=== PATIENT | female | born 1960 | race Caucasian/White ===

== ENCOUNTER 2023-09-18 20:32 | Emergency (ER) | payer BC ==
[2023-09-18] MEDS ORDERED: LORazepam 2 MG/ML SDV IVPUSH ONE (21:05)
[2023-09-18] MEDS ORDERED: Sodium Chloride 0.9% 1,000 ML IV ONE (21:05)
[2023-09-18 21:18] LABS: BASOPHILS PERCENT AUTO 0.5 % (0.2-1.2); EOSINOPHILS ABSOLUTE AUTO 0.2 x10^3/uL (0.0-0.5); EOSINOPHILS PERCENT AUTO 3.8 % (0.0-4.0); HEMATOCRIT 45.1 % (33.0-47.0); HEMOGLOBIN 14.7 g/dL (12.0-16.0); LYMPHOCYTES PERCENT AUTO 16.7 % (25.0-50.0); MEAN CORPUSCULAR HEMOGLOBIN 29.2 pg (26.0-32.0); MEAN CORPUSCULAR HGB CONC 32.6 g/dL (32.0-36.0); MEAN CORPUSCULAR VOLUME 89.5 fL (78.0-93.0); MONOCYTES ABSOLUTE AUTO 0.6 x10^3/uL (0.0-0.8); MONOCYTES PERCENT AUTO 10.2 % (2.0-11.0); NEUTROPHILS PERCENT AUTO 68.8 % (50.0-80.0); PLATELET COUNT,PLT 273 x10^3/uL (130-400); RED BLOOD CELL COUNT 5.04 x10^6/uL (4.00-5.50); WHITE BLOOD CELL COUNT,WBC 5.9 x10^3/uL (4.0-10.0)
[2023-09-18 21:38] LABS: A/G RATIO 0.98; ALANINE AMINOTRANSFERASE,ALT 33 U/L (14-59); ALKALINE PHOSPHATASE 89 U/L (46-116); ANION GAP 17.6 mmol/L (5-15); ASPARTATE AMNIOTRANSFERASE,AST 37 U/L (15-37); BILIRUBIN TOTAL 0.2 mg/dL (0.2-1.0); BLOOD UREA NITROGEN,BUN 21 mg/dL (7-18); C-REACTIVE PROTEIN 0.52 mg/dL (<=0.50); CALCIUM 10.2 mg/dL (8.5-10.1); CARBON DIOXIDE,CO2 24 mmol/L (21-32); CHLORIDE,CL 103 mmol/L (98-107); CREATININE 0.7 mg/dL (0.55-1.02); ESTIMATED GFR 98 mL/min (>=60); GLUCOSE RANDOM 104 mg/dL (70-99); MAGNESIUM 2.2 mg/dL (1.8-2.4); POTASSIUM,K 3.6 mmol/L (3.5-5.1); PROTEIN TOTAL,TP 8.1 g/dL (6.4-8.2); SODIUM,NA 141 mmol/L (136-145)
[2023-09-18] MEDS ORDERED: LORazepam 2 MG/ML SDV IM ONE (21:42)
[2023-09-18] MEDS ORDERED: Take Home: LORazepam 0.5 MG Tab, 2 Tab Pack PO ONE (22:29)
== END 2023-09-18 22:37 | disposition home or self-care (01) ==
LOC: VM.ED 20:32
DX: F41.9 Anxiety disorder, unspecified (principal); Z87.891 Personal history of nicotine dependence
CPT/HCPCS: 80053; 83735; 85025; 86140; 96361; 96372; 96374; 99283; 99284; A9270; J2060; J7030

== ENCOUNTER 2024-01-18 16:02 | Emergency (ER) | payer BC ==
[2024-01-18] MEDS: Aspirin 81 MG Tab.Chew PO ONE (16:10)
[2024-01-18] MEDS: Ketorolac 15 MG/ML SDV IVPUSH ONE (17:04)
[2024-01-18 17:07] LABS: BASOPHILS PERCENT AUTO 0.4 % (0.2-1.2); EOSINOPHILS ABSOLUTE AUTO 0.1 x10^3/uL (0.0-0.5); EOSINOPHILS PERCENT AUTO 1.9 % (0.0-4.0); HEMATOCRIT 36.8 % (33.0-47.0); HEMOGLOBIN 12.6 g/dL (12.0-16.0); IMMATURE GRAN ABSOLUTE AUTO 0.01 x10^3/uL (0.00-0.07); LYMPHOCYTES ABSOLUTE AUTO 1.1 x10^3/uL (1.0-4.8); LYMPHOCYTES PERCENT AUTO 20.5 % (25.0-50.0); MEAN CORPUSCULAR HEMOGLOBIN 30.7 pg (26.0-32.0); MEAN CORPUSCULAR HGB CONC 34.2 g/dL (32.0-36.0); MEAN CORPUSCULAR VOLUME 89.8 fL (78.0-93.0); MONOCYTES ABSOLUTE AUTO 0.5 x10^3/uL (0.0-0.8); MONOCYTES PERCENT AUTO 8.6 % (2.0-11.0); NEUTROPHILS ABSOLUTE AUTO 3.6 x10^3/uL (1.8-7.7); NEUTROPHILS PERCENT AUTO 68.4 % (50.0-80.0); PLATELET COUNT,PLT 202 x10^3/uL (130-400); WHITE BLOOD CELL COUNT,WBC 5.3 x10^3/uL (4.0-10.0)
[2024-01-18 17:30] LABS: ANION GAP 17.9 mmol/L (5-15); BLOOD UREA NITROGEN,BUN 16 mg/dL (7-18); CALCIUM 9.8 mg/dL (8.5-10.1); CARBON DIOXIDE,CO2 24 mmol/L (21-32); CHLORIDE,CL 104 mmol/L (98-107); CREATININE 0.6 mg/dL (0.55-1.02); ESTIMATED GFR 101 mL/min (>=60); GLUCOSE RANDOM 91 mg/dL (70-99); POTASSIUM,K 3.9 mmol/L (3.5-5.1); SODIUM,NA 142 mmol/L (136-145)
[2024-01-18] MEDS: Iopamidol 755 Mg/ML 100 ML Bottle IVPUSH ONE (18:14)
== END 2024-01-18 19:08 | disposition home or self-care (01) ==
LOC: VM.ED 16:02
DX: R07.89 Other chest pain (principal); E78.00 Pure hypercholesterolemia, unspecified; Z79.899 Other long term (current) drug therapy; Z79.890 Hormone replacement therapy; Z87.891 Personal history of nicotine dependence
CPT/HCPCS: 36415; 71046; 71275; 80048; 84484; 85025; 85379; 96374; 99285-25; A9270-GY; J1885; Q9967